=== PATIENT | male | born 1945 | race Caucasian/White ===

== ENCOUNTER → 2017-12-04 | Outpatient (CLI) | payer OTHER | LOC: OIH 11:30 | PROVIDERS: ATTEND Internal Medicine | DX: I10 Essential (primary) hypertension (principal) | CPT/HCPCS: 71046 ==

== ENCOUNTER → 2018-12-06 | Outpatient (CLI) | payer OTHER ==
[~2018-12-06] MED LIST: MIDAZOLAM HCL 1 MG/ML 2ML VIAL ONE
== END | disposition home or self-care (01) ==
LOC: RAH 09:45
PROVIDERS: ATTEND Internal Medicine
DX: M47.26 Other spondylosis with radiculopathy, lumbar region (principal); M48.061 Spinal stenosis, lumbar region without neurogenic claudication; R29.898 Other symptoms and signs involving the musculoskeletal system
CPT/HCPCS: 72148; J2250; 99152; 99153

== ENCOUNTER → 2018-12-24 | Outpatient (CLI) | payer OTHER | END | disposition home or self-care (01) | LOC: RAH 08:48 | PROVIDERS: ATTEND Internal Medicine | DX: N20.0 Calculus of kidney (principal); K57.30 Diverticulosis of large intestine without perforation or abscess without bleeding | CPT/HCPCS: 74176 ==

== ENCOUNTER → 2019-02-06 | Outpatient (CLI) | payer OTHER | END | disposition home or self-care (01) | LOC: OIH 10:14 | PROVIDERS: ATTEND Internal Medicine | DX: I10 Essential (primary) hypertension (principal) | CPT/HCPCS: 71046 ==

== ENCOUNTER → 2019-05-08 | Outpatient (CLI) | payer OTHER | END | disposition home or self-care (01) | LOC: OIH 15:40 | PROVIDERS: ATTEND Internal Medicine | DX: M77.31 Calcaneal spur, right foot (principal); M72.2 Plantar fascial fibromatosis | CPT/HCPCS: 73620 ==

== ENCOUNTER → 2019-08-19 | Outpatient (CLI) | payer OTHER ==
--- NOTE | 2019-08-19 09:30 | NUR ---
MRI HEAD/NECK WITH CONSCIOUS SEDATION PATIENT TOLERATED PROCEDURE WELL. HEPLOCK REMOVED AND PATIENT RECOVERED IN RADIOLOGY ROOM. DISCHARGE INSTRUCTIONS GIVEN AND VERBALIZED UNDERSTANDING. DISCHARGED VIA W/C AT 0930. AAO X3 WITH NO C/O DISCOMFORT.
== END | disposition home or self-care (01) ==
LOC: RAH 07:40
PROVIDERS: ATTEND Internal Medicine
DX: M47.22 Other spondylosis with radiculopathy, cervical region (principal); M48.02 Spinal stenosis, cervical region; G31.9 Degenerative disease of nervous system, unspecified; G43.909 Migraine, unspecified, not intractable, without status migrainosus
CPT/HCPCS: 70551; 72141; J2250; 99152; 99153

== ENCOUNTER → 2020-09-03 | Outpatient (CLI) | payer OTHER | END | disposition home or self-care (01) | LOC: RAH 10:28 | PROVIDERS: ATTEND Physical Medicine & Rehabilitation | DX: M50.322 Other cervical disc degeneration at C5-C6 level (principal); M50.323 Other cervical disc degeneration at C6-C7 level; M50.33 Other cervical disc degeneration, cervicothoracic region; M47.812 Spondylosis without myelopathy or radiculopathy, cervical region; M47.813 Spondylosis without myelopathy or radiculopathy, cervicothoracic region; M46.92 Unspecified inflammatory spondylopathy, cervical region | CPT/HCPCS: 72125 ==

== ENCOUNTER 2022-11-22 11:17 | Day surgery (SDC) | payer OTHER ==
[2022-11-21 15:30] LABS: EOSINOPHILS % (AUTO) 2.8 % (0.0-8.0); HEMATOCRIT 40.1 % (42-54); LYMPHOCYTES % (AUTO) 24.3 % (21.0-51.0); MEAN CORPUSCULAR HEMOGLOBIN 29.1 pg (27.0-33.0); MEAN CORPUSCULAR HGB CONC 32.4 g/dL (32.0-36.0); MEAN CORPUSCULAR VOLUME 89.7 fL (79-99); MONOCYTES % (AUTO) 8.3 % (3.0-13.0); NEUTROPHILS % (AUTO) 63.5 % (40.0-77.0); PLATELET COUNT (AUTO) 265 K/uL (130-400); RED BLOOD CELL COUNT(AUTO) 4.47 MIL/uL (4.50-6.20); WHITE BLOOD COUNT (AUTO) 7.1 K/uL (4.8-10.8)
[2022-11-21 15:34] LABS: APPEARANCE,URINE CLEAR (CLEAR); BILIRUBIN,URINE NEGATIVE (NEGATIVE); COLOR,URINE COLORLESS (YELLOW); GLUCOSE, URINE (UA) NEGATIVE (NEGATIVE); KETONES,URINE NEGATIVE (NEGATIVE); LEUKOCYTE ESTERASE ,URINE NEGATIVE Leu/uL (NEGATIVE); NITRATE,URINE NEGATIVE (NEGATIVE); OCCULT BLOOD,URINE NEGATIVE (NEGATIVE); PH,URINE 5.5 (5.0-8.0); PROTEIN,URINE 70 mg/dL (NEGATIVE); UROBILINOGEN,URINE 0.2 mg/dL (0.2-1.0)
[2022-11-21 15:36] LABS: MUCUS,URINE RARE LPF (None Seen); RBC,URINE 0-1 /HPF (0-1); WBC,URINE 0-1 /HPF (0-1)
[2022-11-21 15:38] LABS: INR 0.93 (0.85-1.15); PROTHROMBIN TIME 10.1 SEC (9.6-11.6)
[2022-11-21 15:39] LABS: CREATININE 2.1 mg/dL (0.5-1.5)
[2022-11-21 15:40] LABS: PARTIAL THROMBOPLASTIN TIME 28.4 SEC (26.3-35.5)
[2022-11-21 16:06] VITALS: BP 178/72
[~2022-11-22] VITALS: Ht 182.9 cm; Wt 91.4 kg
[2022-11-22] VITALS (11 sets, daily range): BP systolic 92–155; BP diastolic 60–77
[2022-11-22 00:28] LABS: B-TYPE NATRIURETIC PEPTIDE 107 pg/mL (0-100)
[~2022-11-22 11:17] MED LIST changes: +AEC81 PO; +AMBIEN PO; +AMLO-257 PO; +COQ PO; +FISH OIL PO; +GABA-529 PO; -MIDAZOLAM HCL 1 MG/ML 2ML VIAL ONE; +SIMV-43 PO; +VALS320T16 PO; +VITAMIN B COMPLEX PO; +VITAMIN C PO
[2022-11-22 11:52] LABS: CREATININE 2.1 mg/dL (0.5-1.5); POTASSIUM 5.1 mmol/L (3.5-5.1)
[2022-11-22] MEDS ORDERED: 0.9%NACL 1000ML 1,000 ML IV ONE (11:54)
[2022-11-22] MEDS ORDERED: IOHEXOL 350 MG/ML 100ML INFUS..BTL IV ONE (14:15)
[2022-11-22] MEDS ORDERED: HEPARIN 10,000 UNIT/10ML (1,000 UNIT/ML) VIAL ONE (14:15)
[2022-11-22] MEDS ORDERED: IOHEXOL-350 50ML VIAL IV ONE (14:15)
[2022-11-22] MEDS ORDERED: VERAPAMIL HCL 2.5 MG/ML VIAL ONE (14:15)
[2022-11-22] MEDS ORDERED: BIVALIRUDIN 250 MG/VIAL IV ONE (14:15)
[2022-11-22] MEDS ORDERED: NITROGLYCERIN 50MG VIAL ONE (14:15)
[2022-11-22] MEDS ORDERED: MIDAZOLAM HCL 1 MG/ML 2ML VIAL ONE (14:16)
[2022-11-22] MEDS ORDERED: LIDOCAINE HCL 400MG/20ML VIAL ONE (14:16)
[2022-11-22] MEDS ORDERED: FENTANYL CITRATE PF 50 MCG/1 ML 2ML VIAL ONE (14:16)
[2022-11-22] MEDS ORDERED: 0.9%NACL 1000ML 1,000 ML IV SCH (16:00)
[2022-11-22] MEDS ORDERED: NITROGLYCERIN 0.4 MG SL TAB SL ONE (16:17)
[2022-11-22] MEDS ORDERED: ACETAMINOPHEN 325 MG TAB ONE (16:33)
== END 2022-11-22 19:00 | disposition home or self-care (01) ==
LOC: DAH 11:17
PROVIDERS: ATTEND Internal Medicine Interventional Cardiology
DX: I25.119 Atherosclerotic heart disease of native coronary artery with unspecified angina pectoris (principal); I25.82 Chronic total occlusion of coronary artery; I12.9 Hypertensive chronic kidney disease with stage 1 through stage 4 chronic kidney disease, or unspecified chronic kidney disease; N18.2 Chronic kidney disease, stage 2 (mild); I49.1 Atrial premature depolarization; M10.9 Gout, unspecified; E78.2 Mixed hyperlipidemia; G60.8 Other hereditary and idiopathic neuropathies; Z79.82 Long term (current) use of aspirin; Z79.01 Long term (current) use of anticoagulants; Z79.899 Other long term (current) drug therapy; Z87.891 Personal history of nicotine dependence
CPT/HCPCS: 80048 ×2; 83880; 85025; 85610; 85730; 81001; 36415 ×2; 93005; 93458; 71045; C1769 ×4; C1894; J3010; J3490 ×3; J7030; J1644 ×2; J2250; Q9967 ×2; A4215; A4221; A4663; A4216; A4606; Q9965; A4223 ×3; 99156; 99157; J0583

== ENCOUNTER → 2023-02-24 | Outpatient (CLI) | payer OTHER ==
[2023-02-24 12:37] LABS: CREATININE 2.3 mg/dL (0.5-1.5)
== END | disposition home or self-care (01) ==
LOC: LAB 11:51
PROVIDERS: ATTEND Thoracic Surgery (Cardiothoracic Vascular Surgery)
DX: I25.10 Atherosclerotic heart disease of native coronary artery without angina pectoris (principal)
CPT/HCPCS: 36415; 82565; 84520

== ENCOUNTER → 2023-03-08 | Outpatient (CLI) | payer OTHER | END | disposition home or self-care (01) | LOC: RAH 12:44 | PROVIDERS: ATTEND Thoracic Surgery (Cardiothoracic Vascular Surgery) | DX: I25.10 Atherosclerotic heart disease of native coronary artery without angina pectoris (principal) | CPT/HCPCS: 71250 ==

== ENCOUNTER 2023-05-20 12:51 | Observation (INO) | payer OTHER ==
[~2023-05-20] VITALS: Ht 182.9 cm; Wt 86.2 kg
[~2023-05-20 12:51] MED LIST changes: -AMBIEN PO; -AMLO-257 PO; +ASCO500C18 PO; -COQ PO; -FISH OIL PO; +FURO20TA6 PO; +METO25 PO; +OMEG-148 PO; +UBID1CAP56 PO; -VALS320T16 PO; +VITA1CAP85 PO; -VITAMIN B COMPLEX PO; -VITAMIN C PO; +ZOLP5TAB2 PO
[2023-05-20 13:54] LABS: BASOPHILS # (AUTO) 0.07 K/uL (0.00-0.20); BASOPHILS % (AUTO) 0.8 % (0.0-5.0); EOSINOPHILS # (AUTO) 0.18 K/uL (0.00-0.70); EOSINOPHILS % (AUTO) 2.1 % (0.0-8.0); HEMATOCRIT 37.1 % (42-54); IMMATURE GRANULOCYTE ABSOLUTE 0.05 K/uL (0-1); LYMPHOCYTES # (AUTO) 1.5 K/uL (1.0-4.8); LYMPHOCYTES % (AUTO) 17.5 % (21.0-51.0); MEAN CORPUSCULAR HEMOGLOBIN 29.3 pg (27.0-33.0); MEAN CORPUSCULAR HGB CONC 32.1 g/dL (32.0-36.0); MEAN CORPUSCULAR VOLUME 91.4 fL (79-99); MONOCYTES # (AUTO) 0.7 K/uL (0.1-1.0); MONOCYTES % (AUTO) 7.6 % (3.0-13.0); NEUTROPHILS # (AUTO) 6.2 K/uL (1.8-7.7); NEUTROPHILS % (AUTO) 71.4 % (40.0-77.0); PLATELET COUNT (AUTO) 405 K/uL (130-400); RED BLOOD CELL COUNT(AUTO) 4.06 MIL/uL (4.50-6.20); RED CELL DISTRIBUTION WIDTH 13.2 % (11.0-15.5); WHITE BLOOD COUNT (AUTO) 8.7 K/uL (4.8-10.8)
[2023-05-20 14:07] LABS: CREATININE 2.2 mg/dL (0.5-1.5); POTASSIUM 4.4 mmol/L (3.5-5.1)
[2023-05-20 14:09] LABS: APPEARANCE,URINE CLOUDY (CLEAR); BACTERIA,URINE FEW /HPF (None Seen); BILIRUBIN,URINE NEGATIVE (NEGATIVE); GLUCOSE, URINE (UA) NEGATIVE (NEGATIVE); KETONES,URINE NEGATIVE (NEGATIVE); LEUKOCYTE ESTERASE ,URINE NEGATIVE Leu/uL (NEGATIVE); MUCUS,URINE RARE LPF (None Seen); NITRATE,URINE NEGATIVE (NEGATIVE); OCCULT BLOOD,URINE LARGE (NEGATIVE); PH,URINE 5.5 (5.0-8.0); PROTEIN,URINE 100 mg/dL (NEGATIVE); RBC,URINE TNTC /HPF (0-1); UROBILINOGEN,URINE 0.2 mg/dL (0.2-1.0); WBC,URINE 0-1 /HPF (0-1)
[2023-05-20 14:10] LABS: COLOR,URINE BROWN (YELLOW)
[2023-05-20 14:11] LABS: ALBUMIN 2.8 g/dL (3.5-5.0); BILIRUBIN,TOTAL 0.2 mg/dL (0.2-1.0); TOTAL PROTEIN, SERUM 6.6 g/dL (6.0-8.3)
[2023-05-20 23:05] VITALS: BP 161/90; PULSE 79; RESP 20
[2023-05-20] MEDS ORDERED: DILT30TA3 PO (23:28)
[2023-05-21] VITALS (8 sets, daily range): BP systolic 146–161; BP diastolic 73–86; PULSE 72–98; RESP 16–18; O2SAT 97
[2023-05-21] MEDS ORDERED: 1/2 NS 1000ML 1,000 ML IV SCH (00:30)
[2023-05-21] MEDS ORDERED: ZOLPIDEM TARTRATE 5 MG TAB PO ONE (00:30)
[2023-05-21] MEDS: CEFTRIAXONE 1G VIAL IVPB SCH (00:48)
[2023-05-21 05:36] LABS: BASOPHILS # (AUTO) 0.05 K/uL (0.00-0.20); BASOPHILS % (AUTO) 0.6 % (0.0-5.0); EOSINOPHILS # (AUTO) 0.36 K/uL (0.00-0.70); EOSINOPHILS % (AUTO) 4.5 % (0.0-8.0); HEMATOCRIT 33.9 % (42-54); IMMATURE GRANULOCYTE ABSOLUTE 0.03 K/uL (0-1); LYMPHOCYTES # (AUTO) 1.8 K/uL (1.0-4.8); LYMPHOCYTES % (AUTO) 23.1 % (21.0-51.0); MEAN CORPUSCULAR HEMOGLOBIN 29.8 pg (27.0-33.0); MEAN CORPUSCULAR HGB CONC 32.7 g/dL (32.0-36.0); MEAN CORPUSCULAR VOLUME 90.9 fL (79-99); MONOCYTES # (AUTO) 0.7 K/uL (0.1-1.0); MONOCYTES % (AUTO) 9.3 % (3.0-13.0); NEUTROPHILS % (AUTO) 62.1 % (40.0-77.0); PLATELET COUNT (AUTO) 361 K/uL (130-400); RED BLOOD CELL COUNT(AUTO) 3.73 MIL/uL (4.50-6.20); RED CELL DISTRIBUTION WIDTH 13.4 % (11.0-15.5)
[2023-05-21 05:57] LABS: ALBUMIN 2.5 g/dL (3.5-5.0); BILIRUBIN,TOTAL 0.2 mg/dL (0.2-1.0); POTASSIUM 3.7 mmol/L (3.5-5.1); TOTAL PROTEIN, SERUM 5.9 g/dL (6.0-8.3)
[2023-05-21] MEDS ORDERED: DILTIAZEM HCL PO SCH (14:30)
[2023-05-21] MEDS ORDERED: HYDROMORPHONE 0.5 MG SYG (0.5MG/0.5ML) IVP PRN (16:00)
[2023-05-21] MEDS: DILTIAZEM 60MG TAB PO SCH ×2 (16:00→23:01)
[2023-05-21] MEDS ORDERED: ONDANSETRON 4MG INJ IVP PRN (16:30)
[2023-05-21] MEDS: GABAPENTIN 100 MG CAPSULE PO SCH (20:56)
[2023-05-21] MEDS ORDERED: ASPIRIN 81 MG EC TAB PO SCH (21:00)
[2023-05-21] MEDS ORDERED: SIMVASTATIN 20 MG TABLET PO SCH (21:00)
[2023-05-21] MEDS ORDERED: TAMSULOSIN HCL 0.4 MG CAP.ER.24H PO SCH (21:00)
[2023-05-21] MEDS ORDERED: ZOLPIDEM TARTRATE 5 MG TAB PO SCH (21:00)
[2023-05-22] VITALS: BP 145/80; PULSE 80; RESP 16
[2023-05-22] MEDS: CEFTRIAXONE 1G VIAL IVPB SCH (00:50)
[2023-05-22 04:00] VITALS: BP 131/78; PULSE 81; RESP 17
[2023-05-22] MEDS: DILTIAZEM 60MG TAB PO SCH (06:20)
[2023-05-22 07:17] VITALS: O2SAT 97
[2023-05-22 08:00] VITALS: BP 138/69; PULSE 87; RESP 18
[2023-05-22] MEDS ORDERED: NON-FORMULARY MEDICATION 1 EACH (Ascorbic Acid (Vitamin C) 500 MG) PO SCH (09:00)
[2023-05-22] MEDS ORDERED: ASCORBIC ACID 500 MG TAB PO SCH (09:00)
[2023-05-22] MEDS ORDERED: FISH OIL 1000 MG/CAP PO SCH (09:00)
[2023-05-22] MEDS ORDERED: NON-FORMULARY MEDICATION 1 EACH (Omega-3S/Dha/Epa/Fish Oil (Fish Oil 1,000 mg Softgel) 1 E PO SCH (09:00)
[2023-05-22] MEDS ORDERED: VITAMIN B COMPLEX 1 CAPSULE PO SCH (09:00)
[2023-05-22] MEDS: GABAPENTIN 100 MG CAPSULE PO SCH (09:39)
== END 2023-05-22 14:24 | disposition home or self-care (01) ==
LOC: EDH 12:51 → EDHIP 18:34 → 3DH 23:10
PROVIDERS: ADMIT Internal Medicine; ATTEND Internal Medicine
DX: N20.0 Calculus of kidney (principal); R31.0 Gross hematuria; N39.0 Urinary tract infection, site not specified; N40.0 Benign prostatic hyperplasia without lower urinary tract symptoms; K57.30 Diverticulosis of large intestine without perforation or abscess without bleeding; I12.9 Hypertensive chronic kidney disease with stage 1 through stage 4 chronic kidney disease, or unspecified chronic kidney disease; N18.30 Chronic kidney disease, stage 3 unspecified; J90 Pleural effusion, not elsewhere classified; I25.10 Atherosclerotic heart disease of native coronary artery without angina pectoris; I35.0 Nonrheumatic aortic (valve) stenosis; E78.5 Hyperlipidemia, unspecified; Z95.1 Presence of aortocoronary bypass graft; Z79.82 Long term (current) use of aspirin; Z79.899 Other long term (current) drug therapy; Z87.442 Personal history of urinary calculi
CPT/HCPCS: 99285; 80053 ×2; 85025 ×2; 81001; 36415 ×2; 74176; 96374; 96361; 96375; 76770; 96376; G0378 ×43; J0696 ×2; J1170

== ENCOUNTER 2023-07-27 10:00 | Observation (INO) | payer OTHER ==
[2023-07-17 12:54] LABS: BASOPHILS # (AUTO) 0.05 K/uL (0.00-0.20); BASOPHILS % (AUTO) 0.6 % (0.0-5.0); EOSINOPHILS # (AUTO) 0.14 K/uL (0.00-0.70); EOSINOPHILS % (AUTO) 1.7 % (0.0-8.0); HEMATOCRIT 38.3 % (42-54); IMMATURE GRANULOCYTE ABSOLUTE 0.02 K/uL (0-1); LYMPHOCYTES # (AUTO) 1.1 K/uL (1.0-4.8); MEAN CORPUSCULAR HEMOGLOBIN 28.5 pg (27.0-33.0); MEAN CORPUSCULAR HGB CONC 32.1 g/dL (32.0-36.0); MEAN CORPUSCULAR VOLUME 88.7 fL (79-99); MONOCYTES # (AUTO) 0.8 K/uL (0.1-1.0); MONOCYTES % (AUTO) 9.8 % (3.0-13.0); NEUTROPHILS # (AUTO) 6.3 K/uL (1.8-7.7); NEUTROPHILS % (AUTO) 74.7 % (40.0-77.0); PLATELET COUNT (AUTO) 252 K/uL (130-400); RED BLOOD CELL COUNT(AUTO) 4.32 MIL/uL (4.50-6.20); RED CELL DISTRIBUTION WIDTH 14.5 % (11.0-15.5); WHITE BLOOD COUNT (AUTO) 8.5 K/uL (4.8-10.8)
[2023-07-17 13:02] LABS: CREATININE 2.3 mg/dL (0.5-1.5); POTASSIUM 4.2 mmol/L (3.5-5.1)
[2023-07-17 13:06] LABS: INR < 0.93 (0.85-1.15); PROTHROMBIN TIME 10.4 SEC (9.6-11.6)
[2023-07-17 13:07] LABS: PARTIAL THROMBOPLASTIN TIME 28.8 SEC (26.3-35.5)
[2023-07-17 13:34] VITALS: BP 185/77; PULSE 81; RESP 20
[2023-07-17 13:46] LABS: ADD UA MICROSCOPIC YES; APPEARANCE,URINE CLEAR (CLEAR); BILIRUBIN,URINE NEGATIVE (NEGATIVE); COLOR,URINE YELLOW (YELLOW); GLUCOSE, URINE (UA) NEGATIVE (NEGATIVE); KETONES,URINE NEGATIVE (NEGATIVE); LEUKOCYTE ESTERASE ,URINE NEGATIVE Leu/uL (NEGATIVE); NITRATE,URINE NEGATIVE (NEGATIVE); OCCULT BLOOD,URINE NEGATIVE (NEGATIVE); PROTEIN,URINE 300 mg/dL (NEGATIVE); UROBILINOGEN,URINE 0.2 mg/dL (0.2-1.0)
[2023-07-17 13:53] LABS: MUCUS,URINE RARE LPF (None Seen)
[~2023-07-27] VITALS: Ht 182.9 cm; Wt 82.7 kg
[2023-07-27] VITALS (32 sets, daily range): BP systolic 141–194; BP diastolic 63–96; PULSE 72–91; RESP 13–20; O2SAT 97
[~2023-07-27 10:00] MED LIST changes: +DILT30TA3 PO; -FURO20TA6 PO; -METO25 PO; -UBID1CAP56 PO
[2023-07-27] MEDS ORDERED: LACTATED RINGERS 1000ML 1,000 ML IV ONE (10:23)
[2023-07-27] MEDS: CEFTRIAXONE 1G VIAL ONE ×2 (11:12→12:20)
[2023-07-27] MEDS ORDERED: IOHEXOL-350 50ML VIAL IV ONE (11:36)
[2023-07-27] MEDS ORDERED: FENTANYL CITRATE PF 50 MCG/1 ML 2ML VIAL ONE (11:55)
[2023-07-27] MEDS ORDERED: ROCURONIUM 10MG/1ML SYR 10 MG/ML ML ONE (11:55)
[2023-07-27] MEDS ORDERED: PROPOFOL 10 MG/ML 20ML VIAL IV ONE (11:55)
[2023-07-27] MEDS ORDERED: LIDOCAINE PF 100MG/5ML (2%) SYRINGE 5ML ONE (11:55)
[2023-07-27] MEDS ORDERED: METHYLENE BLUE 5 MG/ML AMP ONE (12:58)
[2023-07-27] MEDS ORDERED: METHYLENE BLUE 5 MG/ML AMP IJ ONE (13:03)
[2023-07-27] MEDS ORDERED: NEOSTIGMINE 5MG/5ML SYR IV ONE (13:49)
[2023-07-27] MEDS ORDERED: HYDRALAZINE 20MG/ML VIAL ONE (14:01)
[2023-07-27] MEDS ORDERED: LABETALOL 20MG SYG IV ONE (15:19)
[2023-07-27] MEDS ORDERED: ZOLPIDEM TARTRATE 5 MG TAB PO PRN (18:00)
[2023-07-27] MEDS ORDERED: ONDANSETRON 4MG INJ IVP PRN (18:30)
[2023-07-27] MEDS ORDERED: PHARMACY COMMUNICATION MISC SCH (18:30)
[2023-07-27] MEDS ORDERED: HYDROCODONE/ACETAMINOPHEN 7.5/325 MG TAB PO PRN (18:30)
[2023-07-27] MEDS ORDERED: DILTIAZEM HCL PO SCH (18:30)
[2023-07-27] MEDS ORDERED: POTASSIUM CHLORIDE IV SCH (19:00)
[2023-07-27] MEDS ORDERED: LACTATED RINGERS IV SCH (19:00)
[2023-07-27] MEDS ORDERED: ZOLPIDEM TARTRATE 5 MG TAB PO SCH (21:00)
[2023-07-27] MEDS ORDERED: VITAMIN B COMPLEX 1 CAPSULE PO SCH (21:00)
[2023-07-27] MEDS ORDERED: GABAPENTIN 100 MG CAPSULE PO SCH (21:00)
[2023-07-27] MEDS ORDERED: SIMVASTATIN 20 MG TABLET PO SCH ×2 (21:00)
[2023-07-27] MEDS ORDERED: ASPIRIN 81 MG EC TAB PO SCH (21:00)
[2023-07-27] MEDS: GABAPENTIN 100 MG CAPSULE PO SCH (21:21)
[2023-07-27] MEDS: FISH OIL 1000 MG/CAP PO SCH (21:23)
[2023-07-27] MEDS: DILTIAZEM 60MG TAB PO SCH (21:23)
[2023-07-27] MEDS ORDERED: LACTATED RINGERS 1000ML 1,000 ML IV SCH (21:30)
[2023-07-28] VITALS (13 sets, daily range): BP systolic 139–175; BP diastolic 65–89; PULSE 69–82; RESP 19–20; O2SAT 95
[2023-07-28 06:07] LABS: CREATININE 2.2 mg/dL (0.5-1.5); POTASSIUM 3.5 mmol/L (3.5-5.1)
[2023-07-28] MEDS ORDERED: 0.9%NACL 1000ML 1,000 ML IV SCH (07:30)
[2023-07-28 07:58] LABS: INR < 0.93 (0.85-1.15); PROTHROMBIN TIME 10.8 SEC (9.6-11.6)
[2023-07-28 07:59] LABS: PARTIAL THROMBOPLASTIN TIME 30.2 SEC (26.3-35.5)
[2023-07-28] MEDS ORDERED: CEFTRIAXONE 1G VIAL IVPB SCH (08:00)
[2023-07-28] MEDS: DILTIAZEM 60MG TAB PO SCH (08:54)
[2023-07-28] MEDS: GABAPENTIN 100 MG CAPSULE PO SCH (09:00)
[2023-07-28] MEDS: FISH OIL 1000 MG/CAP PO SCH (09:00)
[2023-07-28] MEDS ORDERED: ASCORBIC ACID 500 MG TAB PO SCH (09:00)
[2023-07-28] MEDS ORDERED: IODIXANOL 320 MG/ML 100 ML VIAL ONE (10:01)
[2023-07-28] MEDS ORDERED: LIDOCAINE HCL 1% MDV 50ML VIAL ONE (10:01)
[2023-07-28] MEDS ORDERED: HYDRALAZINE 25MG TABLET PO PRN (10:30)
[2023-07-28] MEDS ORDERED: HYDRALAZINE 20MG/ML VIAL IV PRN (10:30)
[2023-07-28] MEDS ORDERED: HYDROCHLOROTHIAZIDE 25 MG TABLET PO SCH (10:30)
[2023-07-28] MEDS ORDERED: IOHEXOL-350 50ML VIAL IV ONE (12:14)
[2023-07-28] MEDS ORDERED: LIDOCAINE HCL 400MG/20ML VIAL ONE (12:14)
[2023-07-28] MEDS ORDERED: FENTANYL CITRATE PF 50 MCG/1 ML 2ML VIAL ONE ×2 (12:14→13:29)
[2023-07-28] MEDS ORDERED: MIDAZOLAM HCL 1 MG/ML 2ML VIAL ONE ×2 (12:14→13:29)
[2023-07-28] MEDS ORDERED: FUROSEMIDE 20MG VIAL ONE (12:48)
== END 2023-07-28 19:20 | disposition home or self-care (01) ==
LOC: DAH 10:00 → ENDO 10:00 → 3AH 10:01 → EDSTATUS 10:30
PROVIDERS: ADMIT Urology; ATTEND Urology
DX: R31.0 Gross hematuria (principal); I10 Essential (primary) hypertension; N17.9 Acute kidney failure, unspecified; I25.10 Atherosclerotic heart disease of native coronary artery without angina pectoris; C67.9 Malignant neoplasm of bladder, unspecified; N13.8 Other obstructive and reflux uropathy; I48.91 Unspecified atrial fibrillation; N40.1 Benign prostatic hyperplasia with lower urinary tract symptoms
CPT/HCPCS: 80048 ×2; 85025; 85610 ×2; 85730 ×2; 87088; 81001; 36415 ×2; 71045; 93005 ×2; 52204; 96375; 88305; 74420; 50684; 96365; 10030; A6260; G0378 ×26; A4600; A4663; J7120 ×4; C1758; J3010 ×3; J2710; J2001; J0360; J0696 ×2; J2704; J3480; Q9967 ×3; A4358; C1769 ×3; A4215; A4223; A4222; A4221; C1894 ×2; C2617; J3490 ×2; J2250 ×2; J1940; J1644 ×2; 50694; 99156; 99157; Q9968

== ENCOUNTER → 2025-07-15 | Outpatient (CLI) | payer OTHER ==
[~2025-07-15] MED LIST changes: +AMOX1TAB16 PO; +ZOLP-684 PO; -ZOLP5TAB2 PO
--- NOTE | 2025-07-15 10:40 | HMCIMG ---
PROCEDURE: Esophagram. TECHNIQUE: Oral ingestion of barium and effervescent crystals was performed and multiple fluoroscopic images were obtained to evaluate the esophagus. FLUOROSCOPY TIME: 0.7 minutes pulsed fluoroscopy. FINDINGS: The esophagus demonstrates normal motility. The mucosa is normal without evidence of mass, ulceration, or stricture. There was no gastroesophageal reflux witnessed during this examination. There is no hiatal hernia. A barium tablet easily passed through the esophagus into the stomach without hold up. Real-time visualization of swallowing were performed and demonstrated normal swallowing mechanism, normal contour, and normal mucosa. There is a suspicion of possible small diverticulum in the first or second portion of the duodenum. Patient is status post median sternotomy with cardiac revascularization procedure. IMPRESSION: Unremarkable esophagram. And upper GI series
== END | disposition home or self-care (01) ==
LOC: RAH 07:32
PROVIDERS: ATTEND Internal Medicine
DX: R13.10 Dysphagia, unspecified (principal); R63.30 Feeding difficulties, unspecified
CPT/HCPCS: 74220

== ENCOUNTER → 2025-07-16 | Outpatient (CLI) | payer OTHER ==
--- NOTE | 2025-07-16 13:10 | NUR ---
MBSS COMPLETED (OUTPATIENT). No Aspirations; deep non-transient penetration during and after the swallow with no cough response. RECOMMENDATIONS: Minced and moist solids, mildly thick liquids, and pills whole 1 per swallow as tolerated. COMPENSATORY STRATEGIES: 1. sit upright during oral intake 2. small bites/sips 3. slow oral intake 4. alternate bites/sips (liquid wash) 5. extra dry swallows 6. NO STRAWS NOTES: Pt with instrumentation at C4-C7 level. DIAGNOSTIC FINDINGS: Pt presented with mild pharyngeal dysphagia characterized by decreased tongue base retraction; delayed pharyngeal response trigger; decreased hyo-laryngeal elevation/excursion; and decreased epiglottic inversion likely due to narrowing of pharyngeal space from instrumentation at C4-C7 level. These characteristics were evidenced by occasional premature spillage to valleculae with spillover to pyriform sinuses; residue on base of tongue and posterior pharyngeal wall; pooling of residue on valleculae and occasionally in pyriform sinuses; resulting in deep non-transient penetration during and after the swallow with thin liquids via cup sip with no cough response. No aspirations observed. [employer] P[employer] WORKER reviewed results and recommendations with patient. CINDER PIT WORKER educated patient on risks and consequences of aspiration. Pt reported that he needs to drink a certain amount of water a day to meet other health issues. [place] water protocol was brought up to patient; however with doctor's approval. If approved by MD, recommend speech consult to educate on protocol. All questions answered. Addendum: 07/17/[address] DREA AVALOS Amended: Links added.
== END | disposition home or self-care (01) ==
LOC: RAH 12:45
PROVIDERS: ATTEND Internal Medicine
DX: R13.10 Dysphagia, unspecified (principal); R63.30 Feeding difficulties, unspecified
CPT/HCPCS: 74230; 92611